=== PATIENT | male | born 1975 | race Caucasian/White ===

== ENCOUNTER 2018-03-17 12:24 | Emergency (ER) | payer MEDICAID ==
[2018-03-17 13:28] LABS: ADD MAN DIFF? NO
[2018-03-17 13:32] LABS: ABNORMAL IP MESSAGE 1; BASOPHILS % 0.5 % (0.0-2.0); EOSINOPHILS % 0.3 % (0.0-7.0); HEMATOCRIT 29.7 % (42.0-52.0); HEMOGLOBIN 7.9 g/dl (14.0-18.0); LYMPHOCYTES # 1.2 10^3/ul (0.8-2.9); LYMPHOCYTES % 15.8 % (15.0-51.0); MEAN CORPUSCULAR HEMOGLOBIN 15.9 pg (29.0-33.0); MEAN CORPUSCULAR HGB CONC 26.6 g/dl (32.0-37.0); MEAN CORPUSCULAR VOLUME 59.8 fl (82.0-101.0); MONOCYTE # 0.8 10^3/ul (0.3-0.9); MONOCYTES % 10.4 % (0.0-11.0); NEUTROPHIL # 5.5 10^3/ul (1.6-7.5); NEUTROPHILS % 72.7 % (39.0-77.0); POSITIVE DIFF @See below; RED BLOOD COUNT 4.97 10^6/ul (4.70-6.10)
[2018-03-17 13:32] LABS: WHITE BLOOD COUNT 7.5 10^3/ul (4.8-10.8)
[2018-03-17 13:34] LABS: PLATELET COUNT 121 10^3/UL (140-415)
[2018-03-17 13:42] LABS: ADD UMIC NO; UR ASCORBIC ACID NEGATIVE (NEGATIVE); UR BILIRUBIN (Dip) NEGATIVE (NEGATIVE); UR BLOOD (Dip) NEGATIVE (NEGATIVE); UR CLARITY CLEAR (CLEAR); UR COLOR YELLOW (YELLOW); UR GLUCOSE (Dip) 3+ mg/dL (NEGATIVE); UR KETONES (Dip) NEGATIVE (NEGATIVE); UR LEUKOCYTE ESTERASE (Dip) NEGATIVE Leu/ul (NEGATIVE); UR NITRITE (Dip) NEGATIVE (NEGATIVE); UR SPECIFIC GRAVITY (Dip) 1.029 (1.003-1.030); UR TOTAL PROTEIN (Dip) NEGATIVE (NEGATIVE); UR UROBILINOGEN (Dip) NEGATIVE (NEGATIVE)
[2018-03-17 13:52] LABS: ANION GAP 9 (5-13); Estimated GFR > 60 mL/min (>60)
[2018-03-17 13:53] LABS: ALANINE AMINOTRANSFERASE 33 IU/L (13-69); ALBUMIN 3.2 g/dl (3.3-4.9); ALBUMIN/GLOBULIN RATIO 0.84; ALKALINE PHOSPHATASE 197 IU/L (42-121); ASPARTATE AMINO TRANSFERASE 54 IU/L (15-46); BILIRUBIN,INDIRECT 0.8 mg/dl (0-1.1); BILIRUBIN,TOTAL 0.8 mg/dl (0.2-1.3); BLOOD UREA NITROGEN 13 mg/dl (7-20); CALCIUM 8.5 mg/dl (8.4-10.2); CARBON DIOXIDE 22 mmol/L (21-31); CHLORIDE 105 mmol/L (97-110); GLUCOSE 253 mg/dl (70-220); LIPASE 173 U/L (23-300); POTASSIUM 4.4 mmol/L (3.5-5.1); SODIUM 136 mmol/L (135-144)
[2018-03-17] MEDS: ACETAMINOPHEN 325 MG TAB PO (14:45)
[2018-03-17] MEDS: ONDANSETRON (ODT) 4 MG TAB ODT (14:45)
== END 2018-03-17 15:20 | disposition home or self-care (01) ==
LOC: E/R 12:24
DX: K74.60 Unspecified cirrhosis of liver (principal)
CPT/HCPCS: 36415; 71045; 74176; 80053; 81003; 83690; 85025; 87040; 87086; 99285-25

== ENCOUNTER 2018-10-18 12:05 | Inpatient (IN) | payer MEDICAID ==
[2018-10-18 13:06] LABS: ADD MAN DIFF? NO
[2018-10-18 13:13] LABS: ABNORMAL IP MESSAGE 1; BASOPHILS % 0.2 % (0.0-2.0); EOSINOPHILS % 0.8 % (0.0-7.0); HEMATOCRIT 26.5 % (42.0-52.0); HEMOGLOBIN 7.2 g/dl (14.0-18.0); LYMPHOCYTES # 1.4 10^3/ul (0.8-2.9); LYMPHOCYTES % 25.7 % (15.0-51.0); MEAN CORPUSCULAR HEMOGLOBIN 15.9 pg (29.0-33.0); MEAN CORPUSCULAR HGB CONC 27.2 g/dl (32.0-37.0); MEAN CORPUSCULAR VOLUME 58.4 fl (82.0-101.0); MONOCYTE # 0.5 10^3/ul (0.3-0.9); NEUTROPHIL # 3.4 10^3/ul (1.6-7.5); NEUTROPHILS % 64.1 % (39.0-77.0); POSITIVE DIFF @See below; RED BLOOD COUNT 4.54 10^6/ul (4.70-6.10); RED CELL DISTRIBUTION WIDTH 22.4 % (11.5-14.5)
[2018-10-18 13:13] LABS: WHITE BLOOD COUNT 5.3 10^3/ul (4.8-10.8)
[2018-10-18 13:14] LABS: PLATELET COUNT 77 10^3/UL (140-415)
[2018-10-18] MEDS: PANTOPRAZOLE 40 MG INJ IV (13:15)
[2018-10-18 13:16] LABS: ADD UMIC NO; UR ASCORBIC ACID NEGATIVE (NEGATIVE); UR BILIRUBIN (Dip) NEGATIVE (NEGATIVE); UR BLOOD (Dip) NEGATIVE (NEGATIVE); UR CLARITY CLEAR (CLEAR); UR COLOR YELLOW (YELLOW); UR GLUCOSE (Dip) NEGATIVE (NEGATIVE); UR KETONES (Dip) NEGATIVE (NEGATIVE); UR LEUKOCYTE ESTERASE (Dip) NEGATIVE Leu/ul (NEGATIVE); UR NITRITE (Dip) NEGATIVE (NEGATIVE); UR SPECIFIC GRAVITY (Dip) 1.013 (1.003-1.030); UR TOTAL PROTEIN (Dip) NEGATIVE (NEGATIVE); UR UROBILINOGEN (Dip) 2+ mg/dL (NEGATIVE)
[2018-10-18 13:22] LABS: ALANINE AMINOTRANSFERASE 42 IU/L (13-69); ALBUMIN 2.7 g/dl (3.3-4.9); ALBUMIN/GLOBULIN RATIO 0.72; ALKALINE PHOSPHATASE 142 IU/L (42-121); ANION GAP 2 (5-13); ASPARTATE AMINO TRANSFERASE 48 IU/L (15-46); BILIRUBIN,INDIRECT 1.5 mg/dl (0-1.1); BILIRUBIN,TOTAL 1.5 mg/dl (0.2-1.3); BLOOD UREA NITROGEN 8 mg/dl (7-20); CALCIUM 7.8 mg/dl (8.4-10.2); CARBON DIOXIDE 26 mmol/L (21-31); CHLORIDE 108 mmol/L (97-110); Estimated GFR > 60 mL/min (>60); GLUCOSE 169 mg/dl (70-220); LIPASE 121 U/L (23-300); POTASSIUM 3.9 mmol/L (3.5-5.1); SODIUM 136 mmol/L (135-144); TOTAL PROTEIN 6.4 g/dl (6.1-8.1)
[2018-10-18 13:33] LABS: B-TYPE NATRIURETIC PEPTIDE 36 PG/ML (0-125); TROPONIN-I < 0.012 ng/ml (0.000-0.120)
[2018-10-18 13:35] LABS: INR 1.28; PROTIME 16.1 Sec (11.9-14.9); PT RATIO 1.3
[2018-10-18 13:36] LABS: PARTIAL THROMBOPLASTIN TIME 36.4 Sec (23.0-35.0)
[2018-10-18] MEDS: OCTREOTIDE 50 MCG in SOD CHLORIDE 0.9% 25 ML IVPB (13:39)
[2018-10-18] MEDS ORDERED: ACETAMINOPHEN 325 MG TAB PO ×2 (15:00→17:30)
[2018-10-18] MEDS ORDERED: ONDANSETRON 4 MG INJ IV ×2 (15:00→17:30)
[2018-10-18 15:28] LABS: IMMEDIATE SPIN CROSSMATCH 1 1
[2018-10-18] MEDS: SOD CHLORIDE 0.9% 0 ML IV (15:35)
[2018-10-18] MEDS: CEFTRIAXONE 1 GM/50 ML (PMX) 50 ML IVPB (16:15)
[2018-10-18] MEDS ORDERED: HYDROCODONE/APAP (5/325) TAB PO (17:30)
[2018-10-18] MEDS ORDERED: DOCUSATE SODIUM 100 MG CAP PO (17:30)
[2018-10-18] MEDS ORDERED: NACL 0.9% 3 ML SYG IV (17:30)
[2018-10-18] MEDS ORDERED: morphine 2 MG INJ IV (17:30)
[2018-10-18] MEDS ORDERED: BISACODYL 10 MG SUPP PR (17:30)
[2018-10-18] MEDS ORDERED: ACETAMINOPHEN 650 MG SUPP PR (17:30)
[2018-10-18] MEDS ORDERED: MAGNESIUM HYDROXIDE 30ML CUP PO (17:30)
[2018-10-18] MEDS: SOD CHLORIDE 0.9% 500 ML IV (18:07)
[2018-10-18] MEDS: DEXTROSE 5%-0.45% NACL 1,000 ML IV (18:52)
[2018-10-18] MEDS: PANTOPRAZOLE IV 80 MG in SOD CHLORIDE 0.9% 100 ML IV (19:57)
[2018-10-18] MEDS: OCTREOTIDE 500 MCG in DEXTROSE 5% 49 ML IV (19:57)
[2018-10-19] MEDS: DEXTROSE 5%-0.45% NACL 1,000 ML IV ×2 (03:53→13:21)
[2018-10-19] MEDS: PANTOPRAZOLE IV 80 MG in SOD CHLORIDE 0.9% 100 ML IV ×3 (04:37→23:45)
[2018-10-19 06:06] LABS: ADD MAN DIFF? NO
[2018-10-19 06:14] LABS: ABNORMAL IP MESSAGE 1; BASOPHILS % 0.6 % (0.0-2.0); EOSINOPHILS # 0.1 10^3/ul (0.0-0.5); EOSINOPHILS % 3.9 % (0.0-7.0); HEMATOCRIT 27.5 % (42.0-52.0); HEMOGLOBIN 7.6 g/dl (14.0-18.0); LYMPHOCYTES # 1.2 10^3/ul (0.8-2.9); LYMPHOCYTES % 36.4 % (15.0-51.0); MEAN CORPUSCULAR HEMOGLOBIN 16.7 pg (29.0-33.0); MEAN CORPUSCULAR HGB CONC 27.6 g/dl (32.0-37.0); MEAN CORPUSCULAR VOLUME 60.4 fl (82.0-101.0); MONOCYTE # 0.4 10^3/ul (0.3-0.9); MONOCYTES % 10.5 % (0.0-11.0); NEUTROPHIL # 1.6 10^3/ul (1.6-7.5); PLATELET COUNT 77 10^3/UL (140-415); POSITIVE DIFF @See below; RED BLOOD COUNT 4.55 10^6/ul (4.70-6.10); RED CELL DISTRIBUTION WIDTH 23.9 % (11.5-14.5)
[2018-10-19 06:14] LABS: WHITE BLOOD COUNT 3.3 10^3/ul (4.8-10.8)
[2018-10-19 06:39] LABS: ALANINE AMINOTRANSFERASE 47 IU/L (13-69); ALBUMIN 2.4 g/dl (3.3-4.9); ALKALINE PHOSPHATASE 120 IU/L (42-121); ANION GAP 1 (5-13); ASPARTATE AMINO TRANSFERASE 64 IU/L (15-46); BILIRUBIN,INDIRECT 1.5 mg/dl (0-1.1); BILIRUBIN,TOTAL 1.5 mg/dl (0.2-1.3); BLOOD UREA NITROGEN 6 mg/dl (7-20); CALCIUM 7.9 mg/dl (8.4-10.2); CARBON DIOXIDE 26 mmol/L (21-31); CHLORIDE 110 mmol/L (97-110); CREATININE 0.64 mg/dl (0.61-1.24); Estimated GFR > 60 mL/min (>60); GLUCOSE 161 mg/dl (70-220); MAGNESIUM 1.8 mg/dl (1.7-2.5); POTASSIUM 4.2 mmol/L (3.5-5.1); SODIUM 137 mmol/L (135-144); TOTAL PROTEIN 5.8 g/dl (6.1-8.1)
[2018-10-19 07:04] LABS: THYROID STIMULATING HORMONE 0.846 MIU/L (0.465-4.680)
[2018-10-19 07:16] LABS: HEMOGLOBIN A1C 6.2 % (0-5.9)
[2018-10-19] MEDS: OCTREOTIDE 500 MCG in DEXTROSE 5% 49 ML IV ×2 (09:31→22:09)
[2018-10-19] MEDS ORDERED: FENTAnyl 50 MCG/ML VIAL (17:44)
[2018-10-19] MEDS ORDERED: PROPOFOL 20 ML (17:44)
[2018-10-19] MEDS: CEFTRIAXONE 2 GM/50 ML (PMX) 50 ML IVPB (18:53)
[2018-10-20] MEDS: DEXTROSE 5%-0.45% NACL 1,000 ML IV ×2 (00:39→09:36)
[2018-10-20 00:50] LABS: HEMATOCRIT 27.4 % (42.0-52.0); HEMOGLOBIN 7.7 g/dl (14.0-18.0)
[2018-10-20 06:04] LABS: ADD MAN DIFF? NO
[2018-10-20 06:19] LABS: WHITE BLOOD COUNT 3.4 10^3/ul (4.8-10.8)
[2018-10-20 06:19] LABS: ABNORMAL IP MESSAGE 1; BASOPHILS % 1.2 % (0.0-2.0); EOSINOPHILS # 0.1 10^3/ul (0.0-0.5); EOSINOPHILS % 3.8 % (0.0-7.0); HEMATOCRIT 27.5 % (42.0-52.0); HEMOGLOBIN 7.7 g/dl (14.0-18.0); LYMPHOCYTES # 1.2 10^3/ul (0.8-2.9); MEAN CORPUSCULAR HEMOGLOBIN 16.9 pg (29.0-33.0); MEAN CORPUSCULAR VOLUME 60.4 fl (82.0-101.0); MONOCYTE # 0.4 10^3/ul (0.3-0.9); MONOCYTES % 10.9 % (0.0-11.0); NEUTROPHIL # 1.6 10^3/ul (1.6-7.5); NEUTROPHILS % 47.8 % (39.0-77.0); POSITIVE DIFF @See below; RED BLOOD COUNT 4.55 10^6/ul (4.70-6.10); RED CELL DISTRIBUTION WIDTH 23.9 % (11.5-14.5)
[2018-10-20 06:30] LABS: ANION GAP 4 (5-13); BLOOD UREA NITROGEN 7 mg/dl (7-20); CALCIUM 7.5 mg/dl (8.4-10.2); CARBON DIOXIDE 25 mmol/L (21-31); CHLORIDE 108 mmol/L (97-110); CREATININE 0.59 mg/dl (0.61-1.24); Estimated GFR > 60 mL/min (>60); GLUCOSE 187 mg/dl (70-220); MAGNESIUM 1.6 mg/dl (1.7-2.5); PHOSPHORUS 3.4 mg/dl (2.5-4.9); POTASSIUM 3.8 mmol/L (3.5-5.1); SODIUM 137 mmol/L (135-144)
[2018-10-20 06:33] LABS: PLATELET COUNT 77 10^3/UL (140-415)
[2018-10-20] MEDS: MAGNESIUM SULFATE 2 GM/50 ML 50 ML IVPB (09:30)
[2018-10-20] MEDS: PANTOPRAZOLE IV 80 MG in SOD CHLORIDE 0.9% 100 ML IV (09:38)
[2018-10-20] MEDS: FUROSEMIDE 20 MG TAB PO (11:34)
[2018-10-20 12:21] LABS: HEMATOCRIT 28.9 % (42.0-52.0)
[2018-10-20] MEDS: SPIRONOLACTONE 50 MG TAB PO (17:25)
[2018-10-20] MEDS: PANTOPRAZOLE 40 MG INJ IV (17:25)
[2018-10-20] MEDS: CEFTRIAXONE 2 GM/50 ML (PMX) 50 ML IVPB (17:32)
[2018-10-20] MEDS: PROPRANOLOL 10 MG TAB PO (20:30)
[2018-10-20] MEDS: PIPER-TAZO 3.375 GM IV (PMX) 100 ML IVPB (23:39)
[2018-10-21] MEDS: PANTOPRAZOLE 40 MG INJ IV (05:44)
[2018-10-21] MEDS: PIPER-TAZO 3.375 GM IV (PMX) 100 ML IVPB ×2 (05:44→14:52)
[2018-10-21] MEDS: SPIRONOLACTONE 50 MG TAB PO (05:44)
[2018-10-21 05:45] LABS: ADD MAN DIFF? NO
[2018-10-21 05:51] LABS: WHITE BLOOD COUNT 4.2 10^3/ul (4.8-10.8)
[2018-10-21 05:51] LABS: ABNORMAL IP MESSAGE 1; BASOPHILS % 0.5 % (0.0-2.0); EOSINOPHILS # 0.1 10^3/ul (0.0-0.5); EOSINOPHILS % 3.4 % (0.0-7.0); HEMATOCRIT 29.1 % (42.0-52.0); HEMOGLOBIN 8.1 g/dl (14.0-18.0); LYMPHOCYTES # 1.1 10^3/ul (0.8-2.9); LYMPHOCYTES % 26.7 % (15.0-51.0); MEAN CORPUSCULAR HEMOGLOBIN 16.7 pg (29.0-33.0); MEAN CORPUSCULAR HGB CONC 27.8 g/dl (32.0-37.0); MEAN CORPUSCULAR VOLUME 60.1 fl (82.0-101.0); MONOCYTE # 0.4 10^3/ul (0.3-0.9); MONOCYTES % 9.6 % (0.0-11.0); NEUTROPHIL # 2.5 10^3/ul (1.6-7.5); NEUTROPHILS % 59.6 % (39.0-77.0); PLATELET COUNT 85 10^3/UL (140-415); POSITIVE DIFF @See below; RED BLOOD COUNT 4.84 10^6/ul (4.70-6.10); RED CELL DISTRIBUTION WIDTH 24.3 % (11.5-14.5)
[2018-10-21 06:33] LABS: ANION GAP 2 (5-13); BLOOD UREA NITROGEN 8 mg/dl (7-20); CALCIUM 7.6 mg/dl (8.4-10.2); CARBON DIOXIDE 26 mmol/L (21-31); CHLORIDE 108 mmol/L (97-110); CREATININE 0.64 mg/dl (0.61-1.24); Estimated GFR > 60 mL/min (>60); GLUCOSE 123 mg/dl (70-220); MAGNESIUM 1.7 mg/dl (1.7-2.5); PHOSPHORUS 3.6 mg/dl (2.5-4.9); SODIUM 136 mmol/L (135-144)
[2018-10-21] MEDS: FUROSEMIDE 20 MG TAB PO (09:00)
[2018-10-21] MEDS ORDERED: SOD CHLORIDE 0.45% 1,000 ML IV (09:30)
[2018-10-21] MEDS: PROPRANOLOL 10 MG TAB PO (10:54)
[2018-10-21] MEDS ORDERED: SPIRONOLACTONE 25 MG TAB PO (18:00)
== END 2018-10-21 17:50 | disposition home or self-care (01) | DRG 432 ==
LOC: E/R 12:05 → 6WM 14:59
PROC: 06L38ZZ Occlusion of Esophageal Vein, Via Natural or Artificial Opening Endoscopic (ICD-10-PCS; principal; 2018-10-19 16:58)
PROC: 0DB68ZX Excision of Stomach, Via Natural or Artificial Opening Endoscopic, Diagnostic (ICD-10-PCS; 2018-10-19 16:58)
DX: K70.30 Alcoholic cirrhosis of liver without ascites (principal); I85.11 Secondary esophageal varices with bleeding; D62 Acute posthemorrhagic anemia; D61.818 Other pancytopenia; K76.6 Portal hypertension; K76.9 Liver disease, unspecified; K31.89 Other diseases of stomach and duodenum; F10.20 Alcohol dependence, uncomplicated; K27.9 Peptic ulcer, site unspecified, unspecified as acute or chronic, without hemorrhage or perforation
CPT/HCPCS: 36415; 36430; 71045; 76705; 78226; 80048; 80053; 81003; 83036; 83690; 83735; 83880; 84100; 84443; 84484; 85014; 85018; 85025; 85610; 85730; 86850; 86900; 86901; 86920; 88305; 88312; 93005; 96374; 96375; 99285-25